=== PATIENT | female | born 1955 | race Caucasian/White ===

== ENCOUNTER → 2023-11-29 16:21 | Outpatient (REF) | payer MEDICARE, OTHER, SELFPAY | LOC: WDC 16:21 | PROVIDERS: ATTENDING PHYSICIAN Obstetrics & Gynecology Gynecology; FAMILY PHYSICIAN Family Medicine | DX: Z12.31 Encounter for screening mammogram for malignant neoplasm of breast (principal) | CPT/HCPCS: 77063; 77067 ==

== ENCOUNTER → 2024-03-22 06:30 | Outpatient (REF) | payer MEDICARE, OTHER, SELFPAY ==
[2024-03-22 07:59] LABS: % Basophils 1.2 % (0-2); % Eosinophils 2.4 % (0-6); % Immature Granulocytes 0.5 % (0-0.5); % Lymphocytes 32.1 % (20.5-51.1); % Monocytes 9.3 % (1.7-9.3); % Neutrophils 54.5 % (42.2-75.2); Absolute Basophils 0.1 10^3/uL (0-0.2); Absolute Eosinophils 0.1 10^3/uL (0-0.7); Absolute Lymphocytes 1.9 10^3/uL (1.2-3.4); Absolute Monocytes 0.5 10^3/uL (0.1-0.6); Absolute Neutrophils 3.2 10^3/uL (1.4-6.5); Hematocrit 40.9 % (37.0-47.0); Hemoglobin 13.7 g/dL (12.0-16.0); Mean Corp Hgb Conc. 33.5 g/dL (33.0-37.0); Mean Corpuscular Hgb 29.8 pg (27.0-31.0); Mean Corpuscular Volume 89.1 fL (81.0-99.0); Mean Platelet Volume 9.1 fL (7.4-10.4); Nucleated Red Blood Cells % 0 %; Platelet Count 258 10^3/uL (130-400); Red Blood Cell Count 4.59 10^6/uL (4.20-5.40); Red Cell Dist. Width 12.4 % (11.5-14.5); White Blood Cell Count 5.8 10^3/uL (4.8-10.8)
[2024-03-22 08:47] LABS: ALT (SGPT) 11 U/L (0-35); AST (SGOT) 22 U/L (14-36); Albumin 4.1 g/dl (3.5-5.0); Alkaline Phosphatase 72 U/L (38-126); Blood Urea Nitrogen 22 mg/dl (7-17); Calcium 9.6 mg/dl (8.4-10.2); Carbon Dioxide 27 mmol/L (22-30); Chloride 105 mmol/L (98-107); Glucose 90 mg/dl (70-99); HDL Cholesterol 83 mg/dl; LDL Cholesterol, Calculated 124 mg/dl; Potassium 4.4 mmol/L (3.5-5.1); Sodium 139 mmol/L (135-145); Total Bilirubin 0.5 mg/dl (0.2-1.3); Total Cholesterol 217 mg/dl (50-199); Total Protein 6.8 g/dl (6.3-8.2); Triglyceride 52 mg/dl (10-149); Very Low Density Lipoprotein 10 mg/dl (0-30); eGFR > 60.00
[2024-03-22 08:55] LABS: Vitamin D, 25-OH*** 31.3 ng/mL (30-80)
[2024-03-22 09:09] LABS: TSH 1.37 uIU/ml (0.47-4.68)
== END ==
LOC: REG 06:30
PROVIDERS: ATTENDING PHYSICIAN Family Medicine; FAMILY PHYSICIAN Internal Medicine Cardiovascular Disease
DX: Z13.220 Encounter for screening for lipoid disorders (principal); M85.88 Other specified disorders of bone density and structure, other site; Z78.9 Other specified health status; Z01.89 Encounter for other specified special examinations; I47.10 Supraventricular tachycardia, unspecified; R00.2 Palpitations
CPT/HCPCS: 36415; 80053; 80061; 82306; 84443; 85025

== ENCOUNTER → 2024-04-04 12:42 | Outpatient (REF) | payer MEDICARE, OTHER, SELFPAY | LOC: RCS 12:42 | PROVIDERS: ATTENDING PHYSICIAN Internal Medicine Cardiovascular Disease; FAMILY PHYSICIAN Family Medicine | DX: R00.2 Palpitations (principal) | CPT/HCPCS: 93306 ==

== ENCOUNTER → 2024-12-04 10:16 | Outpatient (REF) | payer MEDICARE, OTHER, SELFPAY | LOC: RCS 10:16 | PROVIDERS: ATTENDING PHYSICIAN Student in an Organized Health Care Education/Training Program; FAMILY PHYSICIAN Family Medicine | DX: R07.89 Other chest pain (principal); R20.0 Anesthesia of skin; R00.2 Palpitations | CPT/HCPCS: 93017 ==

== ENCOUNTER → 2024-12-08 13:36 | Outpatient (REF) | payer MEDICARE, OTHER, SELFPAY | LOC: WDC 13:36 | PROVIDERS: ATTENDING PHYSICIAN Obstetrics & Gynecology Gynecology; FAMILY PHYSICIAN Family Medicine | DX: Z78.0 Asymptomatic menopausal state (principal); Z12.31 Encounter for screening mammogram for malignant neoplasm of breast | CPT/HCPCS: 77063; 77067; 77080 ==

== ENCOUNTER → 2025-02-09 14:17 | Outpatient (REF) | payer MEDICARE, OTHER, SELFPAY | LOC: HWRAD 14:17 | PROVIDERS: ATTENDING PHYSICIAN Student in an Organized Health Care Education/Training Program; FAMILY PHYSICIAN Family Medicine | DX: E78.2 Mixed hyperlipidemia (principal) | CPT/HCPCS: 75571 ==

== ENCOUNTER → 2025-03-30 06:40 | Outpatient (REF) | payer MEDICARE, OTHER, SELFPAY ==
[2025-03-30 07:20] LABS: % Eosinophils 1.6 % (0-6); % Immature Granulocytes 0.3 % (0-0.5); % Lymphocytes 22.2 % (20.5-51.1); % Monocytes 8.2 % (1.7-9.3); % Neutrophils 66.7 % (42.2-75.2); Absolute Basophils 0.1 10^3/uL (0-0.2); Absolute Eosinophils 0.1 10^3/uL (0-0.7); Absolute Lymphocytes 1.3 10^3/uL (1.2-3.4); Absolute Monocytes 0.5 10^3/uL (0.1-0.6); Absolute Neutrophils 3.8 10^3/uL (1.4-6.5); Hematocrit 45.1 % (37.0-47.0); Hemoglobin 15.2 g/dL (12.0-16.0); Mean Corp Hgb Conc. 33.7 g/dL (33.0-37.0); Mean Corpuscular Hgb 30.2 pg (27.0-31.0); Mean Corpuscular Volume 89.7 fL (81.0-99.0); Mean Platelet Volume 9.1 fL (7.4-10.4); Nucleated Red Blood Cells % 0 %; Platelet Count 237 10^3/uL (130-400); Red Blood Cell Count 5.03 10^6/uL (4.20-5.40); Red Cell Dist. Width 12.7 % (11.5-14.5); White Blood Cell Count 5.7 10^3/uL (4.8-10.8)
[2025-03-30 08:11] LABS: ALT (SGPT) 18 U/L (0-35); AST (SGOT) 25 U/L (14-36); Albumin 4.4 g/dl (3.5-5.0); Alkaline Phosphatase 68 U/L (38-126); Blood Urea Nitrogen 22 mg/dl (7-17); Calcium 9.7 mg/dl (8.4-10.2); Carbon Dioxide 29 mmol/L (22-30); Chloride 108 mmol/L (98-107); Glucose 91 mg/dl (70-99); HDL Cholesterol 85 mg/dl; LDL Cholesterol, Calculated 135 mg/dl; Potassium 4.4 mmol/L (3.5-5.1); Sodium 142 mmol/L (135-145); Total Bilirubin 0.6 mg/dl (0.2-1.3); Total Cholesterol 231 mg/dl (50-199); Total Protein 7.3 g/dl (6.3-8.2); Triglyceride 59 mg/dl (10-149); Very Low Density Lipoprotein 11 mg/dl (0-30); eGFR > 60.00
[2025-03-30 08:25] LABS: Vitamin D, 25-OH*** 33.8 ng/mL (30-80)
[2025-03-30 08:59] LABS: Vitamin B12 398 pg/ml (239-931)
== END ==
LOC: REG 06:40
PROVIDERS: ATTENDING PHYSICIAN Family Medicine
DX: M85.88 Other specified disorders of bone density and structure, other site (principal); Z78.9 Other specified health status; Z13.220 Encounter for screening for lipoid disorders; I47.10 Supraventricular tachycardia, unspecified; Z79.899 Other long term (current) drug therapy
CPT/HCPCS: 36415; 80053; 80061; 82306; 82607; 85025

== ENCOUNTER → 2025-04-06 06:53 | Outpatient (REF) | payer MEDICARE, OTHER, SELFPAY | LOC: RAD 06:53 | PROVIDERS: ATTENDING PHYSICIAN Family Medicine | DX: R07.89 Other chest pain (principal) | CPT/HCPCS: 71270; Q9967 ==

== ENCOUNTER → 2025-04-26 14:49 | Outpatient (REF) | payer MEDICARE, OTHER, SELFPAY | LOC: RCS 14:49 | PROVIDERS: ATTENDING PHYSICIAN Student in an Organized Health Care Education/Training Program; FAMILY PHYSICIAN Family Medicine | DX: I20.89 Other forms of angina pectoris (principal) | CPT/HCPCS: 93306 ==